=== PATIENT | female | born 1970 | race African-American/Black ===

== ENCOUNTER 2017-07-13 07:33 | Inpatient (IN) ==
--- NOTE | 2017-07-13 08:36 | History and Physical Update ---
History and Physical Update - History and Physical H&P was reviewed, the patient examined and there: are no changes in the patients condition since last H&P was completed.
[2017-07-13] MEDS ORDERED: LIDOCAINE 1%/EPI INJ 20 ML VIAL ONE (11:32)
[2017-07-13] MEDS: LACTATED RINGERS 1,000 ML IV SCH (12:14)
[2017-07-13] MEDS ORDERED: ONDANSETRON 4 MG/2 ML VIAL IV PRN (13:59)
[2017-07-13] MEDS ORDERED: HYDROmorphone 2 MG/1 ML VIAL IV PRN (13:59)
[2017-07-13] MEDS ORDERED: ACETAMINOPHEN 325 MG TABLET PO PRN (13:59)
[2017-07-13] MEDS ORDERED: BISACODYL 5 MG TABLET PO PRN (13:59)
[2017-07-13] MEDS ORDERED: DEXTROSE 50% 25 GM/50 ML VIAL IV PRN (14:11)
[2017-07-13] MEDS ORDERED: GLUCAGON 1 MG VIAL IM PRN (14:11)
--- NOTE | 2017-07-13 14:15 | Anesthesia Post-Op ---
Anesthesia Post OP - Post Ansesthetic Evaluation Patient seen in post op: Yes Resp: within normal limits CV: within normal limits Mental: within normal limits Temp: within normal limits [id number]: within normal limits Nausea and Vomiting: within normal limits Pain: within normal limits
--- NOTE | 2017-07-13 14:17 | Operative Note ---
Date of procedure: 07/13/17 Pre-op diagnosis: Decubitus ulcer left buttocks Post-op diagnosis: other (Decubitus ulcer with large deep space abscess and necrotic tissue) Procedure: Operative note: Preoperative diagnosis: Unstageable left gluteal decubitus ulcer Postoperative diagnosis: Stage IV left decubitus ulcer with deep space abscess and necrotic tissue Procedure: Excisional debridement of skin necrotic subcutaneous tissue and gluteal muscle left gluteus Surgeon Dr. Lozano was managed anesthetic care with local Brief history: 47-year-old massively obese black female who was on the ventilator at [facility] due to an umbilical hernia repair done in [place] and transferred up here still on the ventilator. She did well and we were following a what looked like a superficial ulcerated area on the left gluteus. We were using some Santyl soften it up try to rotate her and keep her off of it never really looks very bad like it is getting worse or anything. She finally came off the ventilator and we were examining her area and started to have some drainage little bit of an odor so would like to bring up you for some debridement. Procedure: With patient in the right decubitus position prepped and draped in sterile fashion timeout and antibiotics completed we approach this area of the left gluteal ulcer. The area measures 12 cm x 9 cm x 0 cm this time with a large eschar over it. After infiltrating around it with an almost 40 cc of a local anesthetic then made incision with the knife to tangentially debride this eschar off. As we did we got into more necrotic looking fatty tissue but did not see his great deal of drainage present. There was an odor with it at this time. At that point I begin to debride this necrotic fatty tissue as I did I entered a deep cavity superiorly with a large amount of purulent drainage that we ended up culturing aerobically and anaerobically. We had tissues as well as swabs on this in order to get his best cultures were good. I had to start extensive debridement of this area in order to get down into this deep area and try to get as much of this necrotic and infected tissue out debriding both subcutaneous tissue fatty tissue and muscle in this area. Encountered a couple large vessels we had oversew with some 2-0 Vicryl suture and suture ligatures in order to get control of these areas. I debrided his much as I thought I could until we restart the Herter and had no more anesthetic I could give her at this time. Due to her bad respiratory situation and her obesity we were forced at this point to stop what we were doing and go ahead and plan to pack it. I use electrocauterization on his bleedings I could see we washed irrigated with copious amounts of saline solution. At that point I then packed it with Dakin's wet Kerlix rolls but some fluffs over the top along ABD. Post debridement wound is now 12.5 x 11 x 9 cm in size. We then took patient recovery room at this time. Estimated blood loss 100 cc Sponge count correct 2 Drains none Complications none Condition stable satisfactory Anesthesia: MAC, local (0.25% Marcaine with epinephrine mixed [id number] 1% Xylocaine plain) Surgeon / Physician: Jimenez Lawrence Estimated blood loss: other (100 cc) Specimens: other (Tissue for pathology and culture) Condition: stable Disposition: ICU Discharge Plan - Discharge Medications No Action methylPREDNISolone SOD SUC INJ [SoluMEDROL] 20 mg IV BID Albuterol/Ipratropium Neb [Duoneb] 3 ml RESP TX QID Enoxaparin [Lovenox] 40 mg SUBCUT Q24H Dextrose 5 %-0.45 % Sod Chlord [Dextrose 5%-0.45% NaCl IV Soln] 1,000 ml IV DIRECTED Potassium Bicarbonate/Cit AC [Effer-K 20 Meq Tablet Eff] 40 meq PO DAILY Pantoprazole Tab [Protonix Tab] 40 mg PO BID - Follow Up or Referral - Forms/Instructions
[2017-07-13 14:45] LABS: ABG Base Excess 8.7 MMOL/L (-2.5-2.5); ABG HCO3 32.4 MMOL/L (20-26); ABG Oxygen Saturation 96.6 % (95-100); ABG PCO2 58.1 MM HG (35-48); ABG PH 7.392 (7.35-7.45); ABG PO2 90.6 MM HG (80-95); ABG TCO2 32.3 MMOL/L (23-27)
--- NOTE | 2017-07-13 14:59 | XRay Report ---
XR chest 1V portable Indication: Surgery Comparison: 11 July 2017 Findings: The heart and mediastinum are similar in size and configuration. NG tube is been removed. Left arm catheter is unchanged in position. The pulmonary vascularity is normal in caliber. No lung infiltrates, effusions, pneumothorax or other abnormality is demonstrated. Impression: Removal of NG tube. No other significant changes. PROCEDURE INTERPRETED AT [facility] DEPARTMENT OF RADIOLOGY Final Report Signed by: Dr. Riccardo Rodriguez
--- NOTE | 2017-07-13 15:51 | Pulmonology Consult Note ---
Assessment and Plan (1) Decubitus ulcer Status: Acute Assessment and plan: Patient taken to the OR today and had debridement of her large wound. She is fairly stable postop. Current Visit: Yes (2) Morbidly obese Status: Acute Assessment and plan: Patient is very large with a BMI of 58 Current Visit: Yes (3) Mental retardation Status: Acute Assessment and plan: The patient does have mild mental retardation and has a very supportive family. Current Visit: Yes (4) Respiratory insufficiency Status: Acute Assessment and plan: The patient did have respiratory failure with CO2 retention postop but she also has pneumonia and heart failure. This is much improved now. She has a fairly stable respiratory status now. Current Visit: Yes (5) History of ventral hernia repair Status: Acute Assessment and plan: Several weeks ago she had abdominal surgery and is doing better. Current Visit: Yes History of Present Illness Chief complaint: Decubitus ulcer History of present illness: Ms. Fleming is a 47 year old black female that was transferred from [facility] to have a large decubitus ulcer debrided. She has been at [facility] for several weeks now. She was transferred from [facility] after having abdominal surgery. The patient has a history of mental retardation and she is very obese. She did not do much activity at home. She originally presented with abdominal pain and nausea and vomiting and she was found to have an incarcerated ventral hernia. She was taken to surgery and had this reduced. Postop she developed a little more distress and had to be put back on the ventilator. She did have CO2 retention and developed bilateral infiltrates. Some of this for volume overload and some of this was pneumonia. She has grown Pseudomonas out of her washings at one point. She has been on antibiotics and she did diurese quite nicely. Her breathing was better and we extubated her a week or so ago. She has been doing better over the course of time had developed a left buttocks wound. She was taken to surgery today and had this wound opened and debrided. She apparently had a fairly large wound and may need more surgery. She is going to stay at [facility] for now. She is actually done fairly well with her breathing. Her chest x-ray has markedly improved. Home Medications Medication Instructions Recorded Confirmed Type Albuterol/Ipratropium Neb [Duoneb] 3 ml RESP TX QID 07/13/17 07/13/17 History Dextrose 5 %-0.45 % Sod Chlord 1,000 ml IV DIRECTED 07/13/17 07/13/17 History [Dextrose 5%-0.45% NaCl IV Soln] Enoxaparin [Lovenox] 40 mg SUBCUT Q24H 07/13/17 07/13/17 History Pantoprazole Tab [Protonix Tab] 40 mg PO BID 07/13/17 07/13/17 History Potassium Bicarbonate/Cit AC 40 meq PO DAILY 07/13/17 07/13/17 History [Effer-K 20 Meq Tablet Eff] methylPREDNISolone SOD SUC INJ 20 mg IV BID 07/13/17 07/13/17 History [SoluMEDROL] Allergies Allergy/AdvReac Type Severity Reaction Status Date / Time No Known Allergies Allergy Verified 07/13/17 09:38 - Constitutional Constitutional: Present: weight gain. Absent: chills, fever(s) - EENT Eyes: Absent: loss of vision Ears: Absent: decreased hearing Nose, mouth and throat: Absent: dysphagia, headache(s) - Cardiovascular Cardiovascular: Absent: chest pain at rest, dyspnea, edema, palpitations, PND - Respiratory Respiratory: Present: cough. Absent: wheezing, change in phlegm color - Gastrointestinal Gastrointestinal: Absent: abdominal pain, change in bowel habits, dysphagia, nausea, vomiting - Genitourinary Genitourinary: Absent: dysuria, hematuria, urinary frequency - Musculoskeletal Musculoskeletal: Present: arthralgias, back pain - Neurological Neurological: Absent: abnormal speech, focal weakness Exam (Pulmonay) H&P - Constitutional Vitals: Period Temp Pulse Resp BP Sys/Woods Pulse Ox Last 24 Hr 97.1 F-100.5 F 88-110 16-26 92-147/54-124 95-100 General appearance: no acute distress, morbidly obese - Head Head exam: Present: normal inspection, normocephalic - Eye Eye exam: Present: EOMI. Absent: scleral icterus Pupils: Present: GIRMA - ENT ENT exam: Present: normal exam - Neck Neck exam: Absent: lymphadenopathy, thyromegaly - Respiratory Respiratory exam: Present: rhonchi (Patient has good breath sounds with minimal rhonchi.). Absent: accessory muscle use, wheezes - Cardiovascular Cardiovascular exam: Present: regular rate and rhythm. Absent: gallop, systolic murmur - GI/Abdominal GI/Abdominal exam: Present: normal bowel sounds, soft, other (The wound is healing well). Absent: organomegaly, tenderness - Extremities Exam Extremities exam: Absent: calf tenderness, edema - Neurological Exam Neurological exam: Present: alert, oriented X3, CN II-XII intact - Psychiatric Psychiatric exam: Absent: anxious - Skin Skin exam: Present: other (She has a decubitus ulcer that is wrapped) Medical,Surgical,& Family Hx - Medical History Cardio: History of: Hypertension Neurology: History of: Seizures Rheumatology: History of;: Gout Respiratory: History of: COPD, Obstructive Sleep Apnea Gastrointestinal: History of: Bowel Obstruction Other: History of: Miscellaneous Medical Problems (autism) - Surgical History Abdominal Surgeries: Surgical HX of: Hernia Repair - Social History Smoking Status: Never smoker Frequency of Alcohol Use: None Type of Drug Use: None Results - Diagnostic Findings Procedure: Chest x-ray: image reviewed by me, report reviewed by me (Chest x- ray looks better and infiltrates are better.)
[2017-07-13] MEDS: CLINDAMYCIN INJ 600 MG in PREMIX 1 EACH IV SCH ×2 (16:48→21:43)
[2017-07-13] MEDS: metroNIDAZOLE INJ 500 MG in PREMIX 1 EACH IV SCH ×2 (16:48→21:42)
[2017-07-13] MEDS: SODIUM CHLORIDE 0.9% 1,000 ML IV SCH (16:53)
[2017-07-13] MEDS: INSULIN REGULAR 100 UNIT/ML SUBCUT SCH ×2 (16:55→22:13)
[2017-07-13 17:05] LABS: Hemoglobin 9.4 GM/DL (12.0-16.0)
--- NOTE | 2017-07-13 18:18 | Event Note ---
07/13/2017 1800 hrs. Patient's vital signs are stable she looks in general good condition. Hematocrit is 32 vital signs are stable. Dressings with no significant evidence of bleeding at this point. Patient is awake and alert tolerate some liquids. We will plan some wound care tomorrow see what we are and reassess her status at that time.
[2017-07-13] MEDS: PIPERACILLIN/TAZOBACTAM 3,375 MG in SODIUM CHLORIDE 0.9% 100 ML IV SCH (18:32)
[2017-07-13] MEDS: ALBUTEROL/IPRATROPIUM 3 ML NEB RESP TX SCH (18:55)
[2017-07-13] MEDS: methylPREDNISolone SOD SUC 40 MG/1 ML VIAL IV SCH (21:43)
[2017-07-14] MEDS: PIPERACILLIN/TAZOBACTAM 3,375 MG in SODIUM CHLORIDE 0.9% 100 ML IV SCH ×2 (01:35→08:19)
[2017-07-14] MEDS: CLINDAMYCIN INJ 600 MG in PREMIX 1 EACH IV SCH ×2 (02:59→08:19)
[2017-07-14 03:32] LABS: ABG Base Excess 8.3 MMOL/L (-2.5-2.5); ABG HCO3 32.1 MMOL/L (20-26); ABG Oxygen Saturation 98.1 % (95-100); ABG PCO2 62.6 MM HG (35-48); ABG PH 7.362 (7.35-7.45); ABG TCO2 32.8 MMOL/L (23-27); Allen Test Positive
[2017-07-14] MEDS: metroNIDAZOLE INJ 500 MG in PREMIX 1 EACH IV SCH ×2 (03:50→08:19)
[2017-07-14 05:02] LABS: Basophils # 0.1 10*3/uL (0.0-0.2); Basophils % 0.7 % (0.0-0.8); Eosinophils % 0.2 % (0.00-10.9); Hematocrit 31.8 VOL% (35.7-47.0); Hemoglobin 9.4 GM/DL (12.0-16.0); Immature Granulocytes % 0.7 %; Immature Granulocytes Absolute 0.07 #; Lymphocytes # 1.2 10*3/uL (1.4-4.0); Lymphocytes % 12.4 % (21.3-54.2); Mean Corpuscular HGB Conc 29.6 GM/DL (32-36); Mean Corpuscular Hemoglobin 27 PG (27-34); Mean Corpuscular Volume 90.3 FL (87-102); Monocytes # 0.4 10*3/uL (0.11-0.8); Monocytes % 4.2 % (1.7-12.7); Neutrophils % 81.8 % (38.7-73.9); Platelet Count 221 T/CUMM (130-400); Red Blood Count 3.52 MC/CUMM (3.8-5.5); Red Cell Distribution Width 18.1 % (9.3-17.3); White Blood Count 9.8 T/CUMM (4-12)
[2017-07-14 05:24] LABS: Hypochromasia 1+; Microcytosis 1+
[2017-07-14 05:25] LABS: Platelet Estimate Normal
[2017-07-14 05:28] LABS: Albumin 2.6 G/DL (3.4-5.0); Bilirubin,Total 0.4 MG/DL (0.2-1.0); Calcium 9.2 MG/DL (8.5-10.1); Osmolality,Calculated 294.7 MOS/KG (273-304); Potassium 4.1 MMOL/L (3.5-5.1); Total Protein 6.5 G/DL (6.4-8.3)
[2017-07-14] MEDS: ALBUTEROL/IPRATROPIUM 3 ML NEB RESP TX SCH ×3 (07:39→14:00)
--- NOTE | 2017-07-14 07:39 | Pulmonology Progress Note ---
Pulmonary - PN: Subj Interval history: Patient is a 47-year-old black lady that is very obese and recently had abdominal surgery. She had postop respiratory failure that is improved. She did have bilateral pneumonia that has cleared. She now was taken to the OR for debridement of a large buttocks wound. She apparently has a very large defect. She is getting antibiotics. She has done fairly well through the night. She does have some chronic CO2 retention and uses BiPAP at night. She denies shortness of breath now. Her vital signs have been stable. Exam (Progress Note) - Constitutional Vitals: Period Temp Pulse Resp BP Sys/Woods Pulse Ox Last 24 Hr 96.4 F-100.5 F 82-119 12-30 77-147/43-124 95-100 Exam: General appearance: no acute distress, morbidly obese, she has no respiratory distress at all. - Head Head exam: Present: normal inspection, normocephalic - Eye Eye exam: Present: EOMI. Absent: scleral icterus Pupils: Present: GIRMA - ENT ENT exam: Present: normal exam - Neck Neck exam: Absent: lymphadenopathy, thyromegaly - Respiratory Respiratory exam: Present: She has good breath sounds bilaterally is moving air fairly well with just minimal rhonchi. - Cardiovascular Cardiovascular exam: Present: regular rate and rhythm. Absent: gallop, systolic murmur - GI/Abdominal GI/Abdominal exam: Present: normal bowel sounds, soft, other (The wound is healing well). She is very obese. Absent: organomegaly, tenderness - Extremities Exam Extremities exam: Absent: calf tenderness, edema - Neurological Exam Neurological exam: Present: alert, oriented X3, CN II-XII intact, she responds easily. - Psychiatric Psychiatric exam: Absent: anxious - Skin Skin exam: Present: other (She has a decubitus ulcer that is wrapped) Results - Labs CBC & BMP: 07/14/17 04:34 07/14/17 04:34 Labs: PO2 is 117 with a PCO2 of 62 and a pH of 7.36 Assessment and Plan (1) Decubitus ulcer Status: Acute Assessment and plan: Patient taken to the OR and had debridement of her large wound. She says she is comfortable and not hurting too badly. Overall she is stable. Current Visit: Yes (2) Morbidly obese Status: Acute Assessment and plan: Patient is very large with a BMI of 58. She does have chronic CO2 retention. Current Visit: Yes (3) Mental retardation Status: Acute Assessment and plan: The patient does have mild mental retardation and has a very supportive family. Current Visit: Yes (4) Respiratory insufficiency Status: Acute Assessment and plan: The patient did have respiratory failure with CO2 retention postop but she also has had pneumonia and heart failure. This is much improved now. Her chest x- ray is clear now. She is breathing comfortably. Current Visit: Yes (5) History of ventral hernia repair Status: Acute Assessment and plan: Several weeks ago she had abdominal surgery and is doing better. Current Visit: Yes
[2017-07-14] MEDS ORDERED: ENOXAPARIN 40 MG/0.4 ML SYRINGE SUBCUT SCH (08:05)
[2017-07-14] MEDS: INSULIN REGULAR 100 UNIT/ML SUBCUT SCH ×2 (08:05→12:08)
[2017-07-14] MEDS: methylPREDNISolone SOD SUC 40 MG/1 ML VIAL IV SCH (08:18)
[2017-07-14] MEDS ORDERED: POTASSIUM CHLORIDE 20 MEQ PACK PO SCH (09:00)
[2017-07-14] MEDS ORDERED: SODIUM HYPOCHLORITE 0.25% IRRIG 473 ML BOTTLE TOP SCH (09:00)
[2017-07-14] MEDS ORDERED: PANTOPRAZOLE 40 MG VIAL IV SCH (09:00)
--- NOTE | 2017-07-14 09:30 | Discharge Summary ---
Hospital Course - Hospital Course Hospital Course: Discharge summary: Discharge diagnosis: 1. Large necrotic decubitus ulcer left buttocks with deep space abscess--- decubitus ulcer stage IV 2. Respiratory failure off ventilator 3. Massive obesity 4. Umbilical wound due to hernia repair Surgeon Dr. Lawrence Polygraph Technician Dr. Mehran Garcia Polygraph Technician Dr. Antonio Procedure: Extensive excisional debridement of skin subcutaneous tissue fat and muscle of the left buttocks Brief summary: 47-year-old massively obese Afro-[place] female who is just come off the ventilator last week of after being on it for several weeks due to respiratory failure following a hernia repair. She had dark area on her left buttocks that look fairly superficial but then begin to have some drainage. [place] we need to go ahead and find it was going on underneath this and get this under control. We could not stage this so elected to bring her [place] for some debridement. We took her to the operating room where under a MAC we were able to get started on this and as we did we encountered a large pocket of purulent material that we cultured aerobically and anaerobically. I had to debride a good bit of fatty tissue and entered the deep cavity with a large amount of necrotic fatty tissue and necrotic muscle. We took a good bit of tissue debriding muscle and oversewn some blood vessels at this time. We cleaned this up as best we could get him the most of it out especially the loose tissue. We reached a point where she started to be a little more uncomfortable and had exceeded the maximum local anesthetic. Today she has done well throughout the day her hematocrit is 32 her gases look fairly good and she is breathing on her own did not have to be put back on the ventilator at all. We did change the dressing today at that point I stopped impacted. And it looks fairly clean although I still think is can need some additional debridement down the road but at this point it is clean enough that we may be we will send her back to [facility] for additional wound care. I anticipate that we will have to do additional surgery on her which would require her to be intubated and that may subject her to the ventilator again. Will treat her with this dressings and see if we can get things under control and then reassess the wound for further debridement first and next week. Cultures are pending at this time. Dr. Antonio has seen her and discussed it with her and he is comfortable with her returning back to [facility]. - Time spent with patient Time with patient DS: Greater than 30 minutes Diagnosis - Discharge Diagnosis (1) Decubitus ulcer Status: Chronic (2) Morbidly obese Status: Chronic (3) Respiratory insufficiency Status: Chronic (4) History of ventral hernia repair Status: Chronic Discharge Plan - Discharge Data Disposition: Disch/Xfer to [facility] Condition at Discharge: Stable Discharge Diet: advance to your usual diet Activity: other (Bedrest and rotating her every 2 hour) Hygiene: other (After bathing the bed and to irrigate and wash this wound) Weight Bearing at Discharge: weight bear as tolerated Contact your physician if you experience:: fever over 101, Nausea/Vomiting, Bleeding, pain uncontrolled by pain medications - Discharge Medications No Action methylPREDNISolone SOD SUC INJ [SoluMEDROL] 20 mg IV BID Albuterol/Ipratropium Neb [Duoneb] 3 ml RESP TX QID Enoxaparin [Lovenox] 40 mg SUBCUT Q24H Dextrose 5 %-0.45 % Sod Chlord [Dextrose 5%-0.45% NaCl IV Soln] 1,000 ml IV DIRECTED Potassium Bicarbonate/Cit AC [Effer-K 20 Meq Tablet Eff] 40 meq PO DAILY Pantoprazole Tab [Protonix Tab] 40 mg PO BID - Follow Up or Referral - Forms/Instructions Exam - Constitutional Vitals: Period Temp Pulse Resp BP Sys/Woods Pulse Ox Last 24 Hr 96.4 F-100.5 F 79-119 12-30 77-147/43-124 95-100 General appearance: mild distress - Head Head exam: Present: normal inspection - ENT ENT exam: Present: normal exam - Neck Neck exam: Present: normal inspection - Respiratory Respiratory exam: Present: rales, rhonchi - Cardiovascular Cardiovascular exam: Present: regular rate and rhythm - GI/Abdominal GI/Abdominal exam: Present: hypoactive bowel sounds, soft - Extremities Exam Extremities exam: Present: normal inspection - Back Exam Back exam: Present: other (Left gluteal ulcer is fairly clean some dark pale muscle in the deep part of it no unusual drainage or bleeding) - Neurological Exam Neurological exam: Present: alert, oriented X3, CN II-XII intact - Psychiatric Psychiatric exam: Present: normal affect, normal mood, anxious - Skin Skin exam: Present: normal color, warm, dry Discharge Results Procedures and tests throughout hospitalization: Pending Orders 07/13/17 Abscess Culture Routine Anaerobic Culture Routine Tissue (Biopsy) Culture and GS Routine Tissue (Biopsy) Culture and GS Routine 07/13/17 08:13 MRSA Surveillence, Inf Control Routine 07/13/17 13:10 Abscess Culture Routine Anaerobic Culture Routine Labs on day of discharge: Labs from last 24 hours 07/14/17 07/14/17 07/14/17 07:13 04:34 04:34 WBC 9.8 RBC 3.52 L Hgb 9.4 L Hct 31.8 L MCV 90.3 MCH 27 MCHC 29.6 L RDW 18.1 H Plt Count 221 MPV 10.0 Neut % (Auto) 81.8 H Lymph % (Auto) 12.4 L Schuyler % (Auto) 4.2 Eos % (Auto) 0.2 Baso % (Auto) 0.7 Neut # (Auto) 8.0 H Lymph # (Auto) 1.2 L Schuyler # (Auto) 0.4 Eos # (Auto) 0.0 Baso # (Auto) 0.1 Immature Gran % 0.7 Nucleated RBC % 0.0 Immature Gran # 0.07 Nucleated RBCs # 0.00 Platelet Estimate Normal Immature Plt Fraction 0.0 Hypochromasia 1+ Microcytosis 1+ ABG pH ABG pCO2 ABG pO2 ABG HCO3 ABG Total CO2 ABG O2 Saturation ABG Base Excess FiO2 Sodium 145 Potassium 4.1 Chloride 106 Carbon Dioxide 36 H Anion Gap 7.1 BUN 29 H Creatinine 1.10 H GFR Calculation 87 BUN/Creatinine Ratio 26.00 H Glucose 114 H POC Glucose 109 H Calculated Osmolality 294.7 Calcium 9.2 Total Bilirubin 0.40 AST 18 ALT 31 Alkaline Phosphatase 57 Total Protein 6.5 Albumin 2.6 L Globulin 3.9 H Albumin/Globulin Ratio 0.6 L 07/14/17 07/13/17 07/13/17 03:10 21:59 16:52 WBC RBC Hgb Hct MCV MCH MCHC RDW Plt Count MPV Neut % (Auto) Lymph % (Auto) Schuyler % (Auto) Eos % (Auto) Baso % (Auto) Neut # (Auto) Lymph # (Auto) Schuyler # (Auto) Eos # (Auto) Baso # (Auto) Immature Gran % Nucleated RBC % Immature Gran # Nucleated RBCs # Platelet Estimate Immature Plt Fraction Hypochromasia Microcytosis ABG pH 7.362 ABG pCO2 62.6 H ABG pO2 117.0 H ABG HCO3 32.1 H ABG Total CO2 32.8 H ABG O2 Saturation 98.1 ABG Base Excess 8.3 H FiO2 28.00 Sodium Potassium Chloride Carbon Dioxide Anion Gap BUN Creatinine GFR Calculation BUN/Creatinine Ratio Glucose POC Glucose 121 H 103 Calculated Osmolality Calcium Total Bilirubin AST ALT Alkaline Phosphatase Total Protein Albumin Globulin Albumin/Globulin Ratio 07/13/17 07/13/17 07/13/17 16:37 14:21 14:10 WBC RBC Hgb 9.4 L Hct 32.0 L MCV MCH MCHC RDW Plt Count MPV Neut % (Auto) Lymph % (Auto) Schuyler % (Auto) Eos % (Auto) Baso % (Auto) Neut # (Auto) Lymph # (Auto) Schuyler # (Auto) Eos # (Auto) Baso # (Auto) Immature Gran % Nucleated RBC % Immature Gran # Nucleated RBCs # Platelet Estimate Immature Plt Fraction Hypochromasia Microcytosis ABG pH 7.392 ABG pCO2 58.1 H ABG pO2 90.6 ABG HCO3 32.4 H ABG Total CO2 32.3 H ABG O2 Saturation 96.6 ABG Base Excess 8.7 H FiO2 Sodium Potassium Chloride Carbon Dioxide Anion Gap BUN Creatinine GFR Calculation BUN/Creatinine Ratio Glucose POC Glucose 105 Calculated Osmolality Calcium Total Bilirubin AST ALT Alkaline Phosphatase Total Protein Albumin Globulin Albumin/Globulin Ratio DS: Provider Date of admission: 07/13/17 08:00 Primary care physician: . No PCP Attending physician on admission: Jimenez Lawrence MD Consults: 07/13/17 13:59 Consult to Physician [CONS] Routine Comment: Consulting Provider: Emmett Antonio When should Consulting Provider be notified: Now Consult Notification Comment: Patient known to you from [facility] in the unit had [place] because of the large necrotic abscess of the left gluteus Consult to Wound Care - [place] [CONS] Routine Reason for Wound Care: Wound Care Management Consult Comment: large gluteal wound 07/13/17 14:09 Consult to Physician [CONS] Routine Comment: Consulting Provider: Sherine Murphy When should Consulting Provider be notified: In am Consult Notification Comment: Patient with a large left gluteal abscess secondary to decubitus pressure. Please help with antibiotics Discharging clinician: Jimenez Lawrence MD Expected date of discharge: 07/14/17
[2017-07-14] MEDS: LACTATED RINGERS 1,000 ML IV SCH (12:08)
--- NOTE | 2017-07-14 12:26 | Pathology Report from [facility] ---
[facility] ACCESSION # : [id number] PATIENT NAME : Viktor Fleming ORDERING DR : HILDA URBINA MD CLINICAL HX: Left gluteal tissue abscess POST-OP DX: Same SPECIMEN INFO: Left gluteal tissue GROSS DESCRIPTION: The specimen is received in formalin labeled with the patients name and consists of a 10.5 x 7.7 cm lorenz-[id number] fragment of debrided tissue. Capacitor Assembler sections submitted in one cassette. DIAGNOSIS FOR VIKTOR FLEMING: LEFT GLUTEAL TISSUE: Fibrous connective tissue and skeletal muscle with necrosis and abscess formation consistent with pressure ulcer. COLLECTED DATE: 07/13/2017 [facility] REPORT DATE: 07/14/2017 ELECTRONICALLY SIGNED BY: Yamileth Mcginnis III, M.D. 07/14/2017 - 9:52:13 [facility]
[2017-07-14] MEDS: SODIUM CHLORIDE 0.9% 1,000 ML IV SCH (13:52)
[2017-07-14 14:40] VITALS: BP 105/75
--- NOTE | 2017-07-14 15:20 | Infectious Disease Consult ---
Assessment and Plan (1) Decubitus ulcer Status: Chronic Assessment and plan: Infected sacral decubitus ulcer, polymicrobial. Recommendations: I would treat patient with Zosyn and linezolid empirically pending finalization of the cultures. She will need aggressive local wound care. Thank you very much for the consult. Will follow. Discussed with Dr. Lawrence (2) Morbidly obese Status: Chronic (3) History of ventral hernia repair Status: Chronic History of Present Illness Chief complaint: Infected sacral wound History of present illness: History obtained from the chart as patient is autistic and poor historian. Ms. Fleming is a 47 year old female who is morbidly obese and developed a sacral decubitus ulcer after having surgery for an incarcerated ventral hernia. She was on the vent for a while and has been bedbound for many weeks. She was at [facility] for several weeks and was transferred over here yesterday to get debridement. Cultures are growing several organisms and I am asked to assist with antibiotics. She had low-grade fever to 100.5 yesterday but has not fever since. Home Medications Medication Instructions Recorded Confirmed Type Albuterol/Ipratropium Neb [Duoneb] 3 ml RESP TX QID 07/13/17 07/13/17 History Dextrose 5 %-0.45 % Sod Chlord 1,000 ml IV DIRECTED 07/13/17 07/13/17 History [Dextrose 5%-0.45% NaCl IV Soln] Enoxaparin [Lovenox] 40 mg SUBCUT Q24H 07/13/17 07/13/17 History Pantoprazole Tab [Protonix Tab] 40 mg PO BID 07/13/17 07/13/17 History Potassium Bicarbonate/Cit AC 40 meq PO DAILY 07/13/17 07/13/17 History [Effer-K 20 Meq Tablet Eff] methylPREDNISolone SOD SUC INJ 20 mg IV BID 07/13/17 07/13/17 History [SoluMEDROL] Allergies Allergy/AdvReac Type Severity Reaction Status Date / Time No Known Allergies Allergy Verified 07/13/17 09:38 ROS unobtainable: due to mental status Medical,Surgical,& Family Hx - Medical History Cardio: History of: Hypertension Neurology: History of: Seizures Rheumatology: History of;: Gout Respiratory: History of: COPD, Obstructive Sleep Apnea Gastrointestinal: History of: Bowel Obstruction Other: History of: Miscellaneous Medical Problems (autism) - Surgical History Abdominal Surgeries: Surgical HX of: Hernia Repair - Social History Smoking Status: Never smoker Frequency of Alcohol Use: None Type of Drug Use: None Infectious Disease Exam H&P - Constitutional Vitals: Vital Signs Temp Pulse Resp BP Pulse Ox 97.6 F 107 H 24 105/75 96 07/14/17 12:00 07/14/17 14:05 07/14/17 14:05 07/14/17 14:00 07/14/17 14:05 Intake and Output 07/13/17 07/14/17 07/14/17 23:59 07:59 15:59 Intake Total 400 / 400 150 / 150 550 / 550 Output Total 345 / 345 275 / 275 225 / 225 Balance 55 / 55 -125 / -125 325 / 325 Intake: IV 400 / 400 150 / 150 550 / 550 Cleocin Inj 600 mg In 100 / 100 50 / 50 50 / 50 Premix 1 Each @ 100 mls/ hr IV Q6H TABBY Rx#: [id number] Lr 1,000 ml @ 20 mls/hr 300 / 300 IV .Q24H TABBY Rx#: [id number] Zosyn 3,375 mg In Ns 100 100 / 100 0 / 0 100 / 100 ml @ 25 mls/hr IV Q8H TABBY Rx#:[id number] Flagyl Inj 500 mg In 200 / 200 100 / 100 100 / 100 Premix 1 Each @ 100 mls/ hr IV Q6H TABBY Rx#: [id number] Output: Urine 345 / 345 275 / 275 225 / 225 Other: Voiding Method Indwelling Catheter Indwelling Catheter Indwelling Catheter Weight 133.2 kg Patient Weight 07/14/17 23:59 Weight 133.2 kg Exam: General: Patient relatively comfortable, morbidly obese HEENT: Mucous membranes pink and moist, anicteric acyanotic, GIRMA, no oral exudates Neck: Supple, no thyroid gland enlargement Respiratory system: Breath sounds vesicular, no crepitations or wheezes Cardiovascular: Normal S1 and S2, no murmurs appreciated Abdomen: Obese, normal bowel sounds, soft nontender throughout, unable to appreciate organomegaly or mass due to obesity Genitourinary: No suprapubic pain or bladder distention, clear urine from Diaz catheter Extremities: no edema Skin: No rash Reports - Labs CBC & BMP: 07/14/17 04:34 07/14/17 04:34 Labs: Laboratory Results - last 24 hr 07/13/17 07/13/17 07/13/17 16:37 16:52 21:59 WBC RBC Hgb 9.4 L Hct 32.0 L MCV MCH MCHC RDW Plt Count MPV Neut % (Auto) Lymph % (Auto) [place] % (Auto) Eos % (Auto) Baso % (Auto) Neut # (Auto) Lymph # (Auto) [place] # (Auto) Eos # (Auto) Baso # (Auto) Immature Gran % Nucleated RBC % Immature Gran # Nucleated RBCs # Platelet Estimate Immature Plt Fraction Hypochromasia Microcytosis ABG pH ABG pCO2 ABG pO2 ABG HCO3 ABG Total CO2 ABG O2 Saturation ABG Base Excess FiO2 Sodium Potassium Chloride Carbon Dioxide Anion Gap BUN Creatinine GFR Calculation BUN/Creatinine Ratio Glucose POC Glucose 103 121 H Calculated Osmolality Calcium Total Bilirubin AST ALT Alkaline Phosphatase Total Protein Albumin Globulin Albumin/Globulin Ratio 07/14/17 07/14/17 07/14/17 03:10 04:34 04:34 WBC 9.8 RBC 3.52 L Hgb 9.4 L Hct 31.8 L MCV 90.3 MCH 27 MCHC 29.6 L RDW 18.1 H Plt Count 221 MPV 10.0 Neut % (Auto) 81.8 H Lymph % (Auto) 12.4 L [place] % (Auto) 4.2 Eos % (Auto) 0.2 Baso % (Auto) 0.7 Neut # (Auto) 8.0 H Lymph # (Auto) 1.2 L [place] # (Auto) 0.4 Eos # (Auto) 0.0 Baso # (Auto) 0.1 Immature Gran % 0.7 Nucleated RBC % 0.0 Immature Gran # 0.07 Nucleated RBCs # 0.00 Platelet Estimate Normal Immature Plt Fraction 0.0 Hypochromasia 1+ Microcytosis 1+ ABG pH 7.362 ABG pCO2 62.6 H ABG pO2 117.0 H ABG HCO3 32.1 H ABG Total CO2 32.8 H ABG O2 Saturation 98.1 ABG Base Excess 8.3 H FiO2 28.00 Sodium 145 Potassium 4.1 Chloride 106 Carbon Dioxide 36 H Anion Gap 7.1 BUN 29 H Creatinine 1.10 H GFR Calculation 87 BUN/Creatinine Ratio 26.00 H Glucose 114 H POC Glucose Calculated Osmolality 294.7 Calcium 9.2 Total Bilirubin 0.40 AST 18 ALT 31 Alkaline Phosphatase 57 Total Protein 6.5 Albumin 2.6 L Globulin 3.9 H Albumin/Globulin Ratio 0.6 L 07/14/17 07/14/17 07:13 11:07 WBC RBC Hgb Hct MCV MCH MCHC RDW Plt Count MPV Neut % (Auto) Lymph % (Auto) [place] % (Auto) Eos % (Auto) Baso % (Auto) Neut # (Auto) Lymph # (Auto) [place] # (Auto) Eos # (Auto) Baso # (Auto) Immature Gran % Nucleated RBC % Immature Gran # Nucleated RBCs # Platelet Estimate Immature Plt Fraction Hypochromasia Microcytosis ABG pH ABG pCO2 ABG pO2 ABG HCO3 ABG Total CO2 ABG O2 Saturation ABG Base Excess FiO2 Sodium Potassium Chloride Carbon Dioxide Anion Gap BUN Creatinine GFR Calculation BUN/Creatinine Ratio Glucose POC Glucose 109 H 155 H Calculated Osmolality Calcium Total Bilirubin AST ALT Alkaline Phosphatase Total Protein Albumin Globulin Albumin/Globulin Ratio - Reports Microbiology: Microbiology 07/13/17 13:10 Abscess Culture - Preliminary Ulcer Gram Negative Rods Gram Positive Cocci 07/13/17 Unknown Abscess Culture - Preliminary Ulcer - Abscess Gram Negative Rods 07/13/17 Unknown Tissue Culture - Preliminary Ulcer - Abscess Gram Negative Rods Gram Positive Cocci Gram Stain - Final 07/13/17 Unknown Tissue Culture - Preliminary Ulcer - Other Gram Negative Rods Gram Positive Cocci Gram Stain - Final 07/13/17 08:13 MRSA Surveillance Culture - Preliminary Nares - Both Nares (Mrsa screen) No MRSA isolated.
== END 2017-07-14 14:20 | DRG 579 ==
LOC: N.CC 08:00
PROVIDERS: ADMIT Specialist; ATTEND Specialist

== ENCOUNTER 2017-07-29 05:29 | Inpatient (IN) ==
[2017-07-29] MEDS ORDERED: LIDOCAINE 1%/EPI INJ 20 ML VIAL ONE (06:48)
[2017-07-29] MEDS ORDERED: BUPIVACAINE 0.25% 50 ML VIAL ONE (06:48)
[2017-07-29] MEDS ORDERED: ceFAZolin 1,000 MG VIAL ONE ×2 (07:51)
[2017-07-29] MEDS ORDERED: ACETAMINOPHEN 325 MG TABLET PO PRN (08:58)
[2017-07-29] MEDS ORDERED: CHLORHEXIDINE 4% SOLN 118 ML BOTTLE TOP ONE (09:10)
[2017-07-29] MEDS ORDERED: SKIN HEALING OINT (AQUAPHOR) 50 GM TUBE TOP PRN (09:10)
[2017-07-29] MEDS ORDERED: MIDAZOLAM 2 MG/2 ML VIAL ONE (09:30)
[2017-07-29] MEDS ORDERED: fentaNYL 100 MCG/2 ML VIAL ONE (09:30)
[2017-07-29] MEDS ORDERED: GLYCOPYRROLATE 0.4 MG/2 ML VIAL ONE (09:31)
[2017-07-29] MEDS ORDERED: ONDANSETRON 4 MG/2 ML VIAL ONE (09:31)
[2017-07-29] MEDS ORDERED: PROPOFOL 200 MG/20 ML VIAL IV ONE (09:31)
[2017-07-29] MEDS ORDERED: SEVOFLURANE 1 UNIT/15 MINUTE INH ONE (09:32)
[2017-07-29] MEDS ORDERED: ROCURONIUM 100 MG/10 ML VIAL IV ONE (09:33)
[2017-07-29] MEDS ORDERED: SUCCINYLCHOLINE 200 MG/10 ML VIAL ONE (09:33)
[2017-07-29] MEDS ORDERED: SUGAMMADEX 200 MG/2 ML VIAL IV ONE (09:37)
[2017-07-29] MEDS: SODIUM CHLORIDE 0.9% 1,000 ML IV SCH ×2 (10:03→21:01)
[2017-07-29] MEDS: PANTOPRAZOLE 40 MG VIAL IV SCH (10:06)
[2017-07-29] MEDS: ALBUTEROL/IPRATROPIUM 3 ML NEB RESP TX SCH ×3 (12:07→20:09)
[2017-07-29 14:30] LABS: Hematocrit 26.9 VOL% (35.7-47.0); Hemoglobin 8.2 GM/DL (12.0-16.0)
[2017-07-29] MEDS: ceFAZolin 2,000 MG in PREMIX 1 EACH IV SCH ×2 (15:48→22:38)
[2017-07-29] MEDS: methylPREDNISolone SOD SUC 40 MG/1 ML VIAL IV SCH (22:37)
[2017-07-30 04:44] LABS: Basophils % 0.2 % (0.0-0.8); Eosinophils % 0.1 % (0.00-10.9); Hematocrit 21.9 VOL% (35.7-47.0); Hemoglobin 6.7 GM/DL (12.0-16.0); Immature Granulocytes % 0.8 %; Immature Granulocytes Absolute 0.08 #; Lymphocytes # 0.6 10*3/uL (1.4-4.0); Lymphocytes % 5.8 % (21.3-54.2); Mean Corpuscular HGB Conc 30.6 GM/DL (32-36); Mean Corpuscular Hemoglobin 27 PG (27-34); Mean Corpuscular Volume 88.7 FL (87-102); Mean Platelet Volume 9.1 FL (9.6-12.0); Monocytes # 0.4 10*3/uL (0.11-0.8); Monocytes % 3.6 % (1.7-12.7); Neutrophils # 9.1 10*3/uL (1.4-7.4); Neutrophils % 89.5 % (38.7-73.9); Platelet Count 200 T/CUMM (130-400); Red Blood Count 2.47 MC/CUMM (3.8-5.5); Red Cell Distribution Width 19.3 % (9.3-17.3); White Blood Count 10.2 T/CUMM (4-12)
[2017-07-30] MEDS: SODIUM HYPOCHLORITE 0.25% IRRIG 473 ML BOTTLE TOP SCH (05:00)
[2017-07-30 05:33] LABS: Calcium 7.2 MG/DL (8.5-10.1); Osmolality,Calculated 282.8 MOS/KG (273-304)
[2017-07-30 06:02] LABS: Band Neutrophils 1 % (0-10); Giant Platelets Few; Hypochromasia 1+; Lymphocytes 4 % (20-55); Microcytosis Slight; Platelet Estimate Adequate; Segmented Neutrophils 93 % (50-85); Total Cells Counted 100
[2017-07-30] MEDS ORDERED: SODIUM CHLORIDE 0.9% 250 ML IV PRN (06:30)
[2017-07-30] MEDS ORDERED: POTASSIUM CHLORIDE RIDER 10 MEQ in PREMIX 1 EACH IV PRN (08:05)
[2017-07-30] MEDS: ALBUTEROL/IPRATROPIUM 3 ML NEB RESP TX SCH ×4 (08:11→19:50)
[2017-07-30] MEDS: SODIUM CHLORIDE 0.9% 1,000 ML IV SCH ×2 (09:31→16:09)
[2017-07-30] MEDS: PANTOPRAZOLE 40 MG VIAL IV SCH (10:51)
[2017-07-30] MEDS: POTASSIUM BICARB EFFERVESCENT 25 MEQ TABLET PO SCH (10:54)
[2017-07-30] MEDS: ENOXAPARIN 40 MG/0.4 ML SYRINGE SUBCUT SCH (10:54)
[2017-07-30] MEDS: methylPREDNISolone SOD SUC 40 MG/1 ML VIAL IV SCH ×2 (10:57→21:03)
[2017-07-30] MEDS: POTASSIUM CHLORIDE RIDER 20 MEQ in PREMIX 1 EACH IV PRN ×2 (16:04→17:15)
[2017-07-30 21:31] LABS: Hematocrit 30.6 VOL% (35.7-47.0); Hemoglobin 9.7 GM/DL (12.0-16.0)
[2017-07-31] MEDS: SODIUM CHLORIDE 0.9% 1,000 ML IV SCH ×3 (03:03→21:49)
[2017-07-31] MEDS: HYDROmorphone 2 MG/1 ML VIAL IV PRN ×3 (03:23→23:42)
[2017-07-31 04:34] LABS: Calcium 8.2 MG/DL (8.5-10.1); Magnesium 1.7 MG/DL (1.8-2.4); Potassium 4.3 MMOL/L (3.5-5.1)
[2017-07-31 04:41] LABS: Basophils % 0.3 % (0.0-0.8); Hematocrit 31.3 VOL% (35.7-47.0); Hemoglobin 9.8 GM/DL (12.0-16.0); Immature Granulocytes % 1.2 %; Immature Granulocytes Absolute 0.12 #; Lymphocytes % 9.5 % (21.3-54.2); Mean Corpuscular HGB Conc 31.3 GM/DL (32-36); Mean Corpuscular Hemoglobin 28 PG (27-34); Mean Corpuscular Volume 88.7 FL (87-102); Mean Platelet Volume 9.1 FL (9.6-12.0); Monocytes # 0.4 10*3/uL (0.11-0.8); Monocytes % 3.6 % (1.7-12.7); Neutrophils # 8.5 10*3/uL (1.4-7.4); Neutrophils % 85.4 % (38.7-73.9); Platelet Count 277 T/CUMM (130-400); Red Blood Count 3.53 MC/CUMM (3.8-5.5); Red Cell Distribution Width 18.3 % (9.3-17.3)
[2017-07-31] MEDS: ALBUTEROL/IPRATROPIUM 3 ML NEB RESP TX SCH ×4 (07:46→19:38)
[2017-07-31] MEDS: methylPREDNISolone SOD SUC 40 MG/1 ML VIAL IV SCH ×2 (08:00→21:40)
[2017-07-31] MEDS: PANTOPRAZOLE 40 MG VIAL IV SCH (08:02)
[2017-07-31] MEDS: ENOXAPARIN 40 MG/0.4 ML SYRINGE SUBCUT SCH (08:05)
[2017-07-31] MEDS: SODIUM HYPOCHLORITE 0.25% IRRIG 473 ML BOTTLE TOP SCH (08:06)
[2017-07-31] MEDS: POTASSIUM BICARB EFFERVESCENT 25 MEQ TABLET PO SCH (08:08)
[2017-08-01] MEDS ORDERED: CLORAZEPATE 3.75 MG TABLET PO PRN (00:39)
[2017-08-01] MEDS ORDERED: LORazepam 2 MG/1 ML VIAL IV ONE ×2 (02:43→03:00)
[2017-08-01 04:50] LABS: Basophils % 0.3 % (0.0-0.8); Hematocrit 29.8 VOL% (35.7-47.0); Hemoglobin 9.2 GM/DL (12.0-16.0); Lymphocytes # 0.7 10*3/uL (1.4-4.0); Lymphocytes % 6.8 % (21.3-54.2); Mean Corpuscular HGB Conc 30.9 GM/DL (32-36); Mean Corpuscular Hemoglobin 28 PG (27-34); Mean Platelet Volume 9.2 FL (9.6-12.0); Monocytes # 0.4 10*3/uL (0.11-0.8); Monocytes % 4.4 % (1.7-12.7); Neutrophils # 8.5 10*3/uL (1.4-7.4); Neutrophils % 87.5 % (38.7-73.9); Platelet Count 275 T/CUMM (130-400); Red Blood Count 3.31 MC/CUMM (3.8-5.5); White Blood Count 9.8 T/CUMM (4-12)
[2017-08-01 05:30] LABS: Calcium 7.9 MG/DL (8.5-10.1); Osmolality,Calculated 280.1 MOS/KG (273-304)
[2017-08-01 05:40] LABS: Lymphocytes 7 % (20-55); Metamyelocytes 1 %; Myelocytes 1 %; Segmented Neutrophils 86 % (50-85)
[2017-08-01 05:41] LABS: Hypochromasia 1+; Platelet Estimate Normal
[2017-08-01 05:42] LABS: Anisocytosis 1+; Microcytosis 1+; Total Cells Counted 100
[2017-08-01] MEDS: ALBUTEROL/IPRATROPIUM 3 ML NEB RESP TX SCH ×4 (07:07→19:37)
[2017-08-01] MEDS ORDERED: PIPERACILLIN/TAZOBACTAM 3,375 MG in SODIUM CHLORIDE 0.9% 100 ML IV SCH (08:00)
[2017-08-01] MEDS: PANTOPRAZOLE 40 MG VIAL IV SCH (08:10)
[2017-08-01] MEDS: methylPREDNISolone SOD SUC 40 MG/1 ML VIAL IV SCH ×2 (08:10→22:46)
[2017-08-01] MEDS: POTASSIUM BICARB EFFERVESCENT 25 MEQ TABLET PO SCH (08:11)
[2017-08-01] MEDS: SODIUM CHLORIDE 0.9% 1,000 ML IV SCH (08:11)
[2017-08-01] MEDS: ENOXAPARIN 40 MG/0.4 ML SYRINGE SUBCUT SCH (08:11)
[2017-08-01] MEDS: SODIUM HYPOCHLORITE 0.25% IRRIG 473 ML BOTTLE TOP SCH (08:42)
[2017-08-01] MEDS ORDERED: FUROSEMIDE 40 MG/4 ML VIAL IV ONE (08:50)
[2017-08-01] MEDS ORDERED: CIPROFLOXACIN 500 MG TABLET PO SCH (09:00)
[2017-08-01] MEDS: amLODIPine 5 MG TABLET PO SCH (09:12)
[2017-08-01] MEDS: BACITRACIN OINT 0.9 GM PACK TOP SCH (09:38)
[2017-08-01] MEDS: AMIKACIN IV SCH (12:15)
[2017-08-01] MEDS: SODIUM CHLORIDE 0.9% IV SCH (12:15)
[2017-08-01] MEDS: PIPERACILLIN/TAZOBACTAM 4,500 MG in SODIUM CHLORIDE 0.9% 100 ML IV SCH ×2 (16:53→22:49)
[2017-08-02] MEDS: PIPERACILLIN/TAZOBACTAM 4,500 MG in SODIUM CHLORIDE 0.9% 100 ML IV SCH ×4 (06:25→23:50)
[2017-08-02] MEDS: ALBUTEROL/IPRATROPIUM 3 ML NEB RESP TX SCH ×4 (07:35→19:32)
[2017-08-02] MEDS: PANTOPRAZOLE 40 MG VIAL IV SCH (09:38)
[2017-08-02] MEDS: POTASSIUM BICARB EFFERVESCENT 25 MEQ TABLET PO SCH (09:38)
[2017-08-02] MEDS: amLODIPine 5 MG TABLET PO SCH (09:38)
[2017-08-02] MEDS: methylPREDNISolone SOD SUC 40 MG/1 ML VIAL IV SCH ×2 (09:38→21:33)
[2017-08-02] MEDS: ENOXAPARIN 40 MG/0.4 ML SYRINGE SUBCUT SCH (09:38)
[2017-08-02] MEDS: BACITRACIN OINT 0.9 GM PACK TOP SCH (10:24)
[2017-08-02] MEDS: SODIUM HYPOCHLORITE 0.25% IRRIG 473 ML BOTTLE TOP SCH (10:24)
[2017-08-02] MEDS: AMIKACIN IV SCH (13:40)
[2017-08-02] MEDS: SODIUM CHLORIDE 0.9% IV SCH (13:40)
[2017-08-02] MEDS ORDERED: DEXTROSE 50% 25 GM/50 ML VIAL IV PRN (16:52)
[2017-08-02] MEDS ORDERED: GLUCAGON 1 MG VIAL IM PRN (16:52)
[2017-08-02] MEDS: INSULIN REGULAR 100 UNIT/ML SUBCUT SCH (21:34)
[2017-08-03 04:26] LABS: Calcium 9.1 MG/DL (8.5-10.1); Osmolality,Calculated 278.4 MOS/KG (273-304); Potassium 4.1 MMOL/L (3.5-5.1)
[2017-08-03] MEDS: PIPERACILLIN/TAZOBACTAM 4,500 MG in SODIUM CHLORIDE 0.9% 100 ML IV SCH ×3 (06:30→18:00)
[2017-08-03] MEDS: INSULIN REGULAR 100 UNIT/ML SUBCUT SCH ×4 (07:30→21:00)
[2017-08-03] MEDS: ALBUTEROL/IPRATROPIUM 3 ML NEB RESP TX SCH ×4 (07:42→19:11)
[2017-08-03] MEDS: amLODIPine 5 MG TABLET PO SCH (08:18)
[2017-08-03] MEDS: POTASSIUM BICARB EFFERVESCENT 25 MEQ TABLET PO SCH (08:18)
[2017-08-03] MEDS: PANTOPRAZOLE 40 MG VIAL IV SCH (08:20)
[2017-08-03] MEDS: methylPREDNISolone SOD SUC 40 MG/1 ML VIAL IV SCH ×2 (08:23→21:01)
[2017-08-03] MEDS: ENOXAPARIN 40 MG/0.4 ML SYRINGE SUBCUT SCH (08:26)
[2017-08-03] MEDS: BACITRACIN OINT 0.9 GM PACK TOP SCH (10:30)
[2017-08-03] MEDS: SODIUM HYPOCHLORITE 0.25% IRRIG 473 ML BOTTLE TOP SCH (10:30)
[2017-08-03] MEDS: AMIKACIN IV SCH (14:15)
[2017-08-03] MEDS: SODIUM CHLORIDE 0.9% IV SCH (14:15)
[2017-08-04] MEDS: PIPERACILLIN/TAZOBACTAM 4,500 MG in SODIUM CHLORIDE 0.9% 100 ML IV SCH ×4 (01:15→18:00)
[2017-08-04] MEDS: ALBUTEROL/IPRATROPIUM 3 ML NEB RESP TX SCH ×4 (07:37→19:07)
[2017-08-04] MEDS: amLODIPine 5 MG TABLET PO SCH (08:30)
[2017-08-04] MEDS: INSULIN REGULAR 100 UNIT/ML SUBCUT SCH ×3 (08:30→16:30)
[2017-08-04] MEDS: POTASSIUM BICARB EFFERVESCENT 25 MEQ TABLET PO SCH (08:46)
[2017-08-04] MEDS: ENOXAPARIN 40 MG/0.4 ML SYRINGE SUBCUT SCH (08:49)
[2017-08-04] MEDS: PANTOPRAZOLE 40 MG VIAL IV SCH (08:51)
[2017-08-04] MEDS: methylPREDNISolone SOD SUC 40 MG/1 ML VIAL IV SCH ×2 (08:54→20:33)
[2017-08-04] MEDS: BACITRACIN OINT 0.9 GM PACK TOP SCH (14:30)
[2017-08-04] MEDS: SODIUM HYPOCHLORITE 0.25% IRRIG 473 ML BOTTLE TOP SCH (14:30)
[2017-08-04] MEDS: SODIUM CHLORIDE 0.9% IV SCH (16:24)
[2017-08-04] MEDS: AMIKACIN IV SCH (16:24)
[2017-08-05] MEDS: INSULIN REGULAR 100 UNIT/ML SUBCUT SCH ×5 (00:27→20:56)
[2017-08-05] MEDS: PIPERACILLIN/TAZOBACTAM 4,500 MG in SODIUM CHLORIDE 0.9% 100 ML IV SCH ×4 (00:28→19:43)
[2017-08-05 05:04] LABS: Basophils # 0.1 10*3/uL (0.0-0.2); Basophils % 0.4 % (0.0-0.8); Eosinophils # 0.2 10*3/uL (0.0-0.87); Eosinophils % 1.5 % (0.00-10.9); Hematocrit 33.2 VOL% (35.7-47.0); Hemoglobin 10.5 GM/DL (12.0-16.0); Immature Granulocytes % 1.5 %; Immature Granulocytes Absolute 0.18 #; Lymphocytes # 2.8 10*3/uL (1.4-4.0); Lymphocytes % 23.6 % (21.3-54.2); Mean Corpuscular HGB Conc 31.6 GM/DL (32-36); Mean Corpuscular Hemoglobin 28 PG (27-34); Mean Platelet Volume 9.2 FL (9.6-12.0); Monocytes # 0.8 10*3/uL (0.11-0.8); Monocytes % 6.3 % (1.7-12.7); Neutrophils % 66.7 % (38.7-73.9); Platelet Count 328 T/CUMM (130-400); Red Blood Count 3.73 MC/CUMM (3.8-5.5); Red Cell Distribution Width 18.6 % (9.3-17.3)
[2017-08-05 05:27] LABS: Calcium 8.6 MG/DL (8.5-10.1); Osmolality,Calculated 285.1 MOS/KG (273-304); Potassium 3.4 MMOL/L (3.5-5.1)
[2017-08-05 05:30] LABS: Giant Platelets Few; Hypochromasia 1+; Microcytosis 1+; Platelet Estimate Adequate
[2017-08-05] MEDS: ALBUTEROL/IPRATROPIUM 3 ML NEB RESP TX SCH ×4 (07:38→20:05)
[2017-08-05] MEDS: SODIUM HYPOCHLORITE 0.25% IRRIG 473 ML BOTTLE TOP SCH (10:00)
[2017-08-05] MEDS: POTASSIUM BICARB EFFERVESCENT 25 MEQ TABLET PO SCH (10:01)
[2017-08-05] MEDS: BACITRACIN OINT 0.9 GM PACK TOP SCH (10:01)
[2017-08-05] MEDS: amLODIPine 5 MG TABLET PO SCH (10:02)
[2017-08-05] MEDS: ENOXAPARIN 40 MG/0.4 ML SYRINGE SUBCUT SCH (10:04)
[2017-08-05] MEDS: PANTOPRAZOLE 40 MG VIAL IV SCH (10:06)
[2017-08-05] MEDS: methylPREDNISolone SOD SUC 40 MG/1 ML VIAL IV SCH ×2 (10:12→20:57)
[2017-08-05] MEDS: SODIUM CHLORIDE 0.9% IV SCH (16:51)
[2017-08-05] MEDS: AMIKACIN IV SCH (16:51)
[2017-08-06] MEDS: PIPERACILLIN/TAZOBACTAM 4,500 MG in SODIUM CHLORIDE 0.9% 100 ML IV SCH ×4 (00:09→22:50)
[2017-08-06] MEDS: ALBUTEROL/IPRATROPIUM 3 ML NEB RESP TX SCH ×4 (08:00→19:06)
[2017-08-06] MEDS: INSULIN REGULAR 100 UNIT/ML SUBCUT SCH ×4 (08:51→21:25)
[2017-08-06] MEDS: ENOXAPARIN 40 MG/0.4 ML SYRINGE SUBCUT SCH (09:54)
[2017-08-06] MEDS: POTASSIUM BICARB EFFERVESCENT 25 MEQ TABLET PO SCH (09:54)
[2017-08-06] MEDS: amLODIPine 5 MG TABLET PO SCH (09:55)
[2017-08-06] MEDS: PANTOPRAZOLE 40 MG VIAL IV SCH (09:56)
[2017-08-06] MEDS: methylPREDNISolone SOD SUC 40 MG/1 ML VIAL IV SCH ×2 (10:00→21:07)
[2017-08-06] MEDS: SODIUM HYPOCHLORITE 0.25% IRRIG 473 ML BOTTLE TOP SCH (12:29)
[2017-08-06] MEDS: POTASSIUM CHLORIDE RIDER 20 MEQ in PREMIX 1 EACH IV PRN (13:01)
[2017-08-06] MEDS: AMIKACIN IV SCH (17:00)
[2017-08-06] MEDS: SODIUM CHLORIDE 0.9% IV SCH (17:00)
[2017-08-06] MEDS: BACITRACIN OINT 0.9 GM PACK TOP SCH (17:21)
[2017-08-07] MEDS: PIPERACILLIN/TAZOBACTAM 4,500 MG in SODIUM CHLORIDE 0.9% 100 ML IV SCH ×4 (05:07→23:03)
[2017-08-07] MEDS: ALBUTEROL/IPRATROPIUM 3 ML NEB RESP TX SCH ×4 (07:49→19:26)
[2017-08-07] MEDS: INSULIN REGULAR 100 UNIT/ML SUBCUT SCH ×4 (09:22→20:33)
[2017-08-07] MEDS: POTASSIUM BICARB EFFERVESCENT 25 MEQ TABLET PO SCH (10:20)
[2017-08-07] MEDS: amLODIPine 5 MG TABLET PO SCH (10:21)
[2017-08-07] MEDS: ENOXAPARIN 40 MG/0.4 ML SYRINGE SUBCUT SCH (10:22)
[2017-08-07] MEDS: PANTOPRAZOLE 40 MG VIAL IV SCH (10:23)
[2017-08-07] MEDS: methylPREDNISolone SOD SUC 40 MG/1 ML VIAL IV SCH ×2 (10:27→20:35)
[2017-08-07] MEDS: SODIUM HYPOCHLORITE 0.25% IRRIG 473 ML BOTTLE TOP SCH (10:32)
[2017-08-07] MEDS: BACITRACIN OINT 0.9 GM PACK TOP SCH (10:32)
[2017-08-07] MEDS: AMIKACIN IV SCH (15:02)
[2017-08-07] MEDS: SODIUM CHLORIDE 0.9% IV SCH (15:02)
[2017-08-08] MEDS: PIPERACILLIN/TAZOBACTAM 4,500 MG in SODIUM CHLORIDE 0.9% 100 ML IV SCH ×3 (04:25→18:03)
[2017-08-08 06:55] LABS: Basophils % 0.2 % (0.0-0.8); Eosinophils # 0.1 10*3/uL (0.0-0.87); Eosinophils % 0.4 % (0.00-10.9); Hematocrit 32.5 VOL% (35.7-47.0); Hemoglobin 10.3 GM/DL (12.0-16.0); Immature Granulocytes % 1.2 %; Immature Granulocytes Absolute 0.16 #; Lymphocytes # 1.5 10*3/uL (1.4-4.0); Lymphocytes % 10.4 % (21.3-54.2); Mean Corpuscular HGB Conc 31.7 GM/DL (32-36); Mean Corpuscular Hemoglobin 28 PG (27-34); Mean Corpuscular Volume 87.6 FL (87-102); Mean Platelet Volume 10.8 FL (9.6-12.0); Monocytes # 0.8 10*3/uL (0.11-0.8); Neutrophils # 11.4 10*3/uL (1.4-7.4); Neutrophils % 81.8 % (38.7-73.9); Platelet Count 265 T/CUMM (130-400); Red Blood Count 3.71 MC/CUMM (3.8-5.5); Red Cell Distribution Width 18.9 % (9.3-17.3); White Blood Count 13.9 T/CUMM (4-12)
[2017-08-08 07:21] LABS: Band Neutrophils 1 % (0-10); Giant Platelets Few; Hypochromasia 1+; Lymphocytes 16 % (20-55); Microcytosis Slight; Ovalocytes Slight; Platelet Estimate Adequate; Segmented Neutrophils 79 % (50-85); Total Cells Counted 100
[2017-08-08] MEDS: ALBUTEROL/IPRATROPIUM 3 ML NEB RESP TX SCH ×3 (07:45→18:03)
[2017-08-08] MEDS: INSULIN REGULAR 100 UNIT/ML SUBCUT SCH ×3 (07:59→17:56)
[2017-08-08] MEDS: amLODIPine 5 MG TABLET PO SCH (09:04)
[2017-08-08] MEDS: ENOXAPARIN 40 MG/0.4 ML SYRINGE SUBCUT SCH (09:05)
[2017-08-08] MEDS: PANTOPRAZOLE 40 MG VIAL IV SCH (09:16)
[2017-08-08] MEDS: methylPREDNISolone SOD SUC 40 MG/1 ML VIAL IV SCH (09:19)
[2017-08-08 09:48] LABS: Calcium 9.2 MG/DL (8.5-10.1); Osmolality,Calculated 285.3 MOS/KG (273-304)
[2017-08-08 11:34] VITALS: BP 109/66
[2017-08-08] MEDS: SODIUM HYPOCHLORITE 0.25% IRRIG 473 ML BOTTLE TOP SCH (12:30)
[2017-08-08] MEDS: BACITRACIN OINT 0.9 GM PACK TOP SCH (14:40)
[2017-08-08] MEDS ORDERED: AMIKACIN 1,000 MG in SODIUM CHLORIDE 0.9% 100 ML IV SCH (15:00)
[2017-08-08] MEDS: POTASSIUM BICARB EFFERVESCENT 25 MEQ TABLET PO SCH (17:53)
== END 2017-08-08 14:55 | DRG 573 ==
LOC: N.OR 05:29 → N.CC 05:30 → N.3E 08-01 12:47
PROVIDERS: ADMIT Specialist; ATTEND Specialist